=== PATIENT | male | born 1995 | race Caucasian/White ===

== ENCOUNTER 2022-08-27 10:30 | Emergency (ER) | payer OTHER, SELFPAY ==
[2022-08-27] VITALS (24 sets, daily range): BP systolic 95–139; BP diastolic 65–84; PULSE 68–115; RESP 10–17; TEMP 36.3; O2SAT 95–100
[2022-08-27 10:56] LABS: Basophils Percent Auto 0.4 % (0.2-1.2); Eosinophils Percent Auto 0.4 % (0-4.4); Hematocrit 48.5 % (42.0-52.0); Hemoglobin 16.8 g/dL (14.0-18.0); Immature Granulocyte Absolute 0.02 K/mm3 (0.00-0.031); Immature Granulocyte Percent A 0.2 % (0-0.5); Lymphocytes Absolute Auto 1.29 K/mm3 (0.9-3.2); Lymphocytes Percent Auto 15.7 % (18.3-44.2); Mean Corpuscular HGB Conc 34.6 g/dl (32-36); Mean Corpuscular Hemoglobin 30.9 pg (26-34); Mean Corpuscular Volume 89.3 fl (80-100); Mean Platelet Volume 8.9 fl (7.4-10.4); Monocytes Absolute Auto 0.5 K/mm3 (0.1-0.6); Monocytes Percent Auto 6.5 % (2.6-8.5); Neutrophils Absolute Auto 6.3 K/mm3 (1.3-6.7); Neutrophils Percent Auto 76.8 % (45.5-73.1); Platelet Count Result 292 k/mm3 (150-375); Red Blood Count 5.43 M/mm3 (4.6-6.20); Red Cell Distribution Width 11.5 % (11.5-14.5); White Blood Count 8.2 K/mm3 (4.5-10.0)
[2022-08-27 10:58] LABS: Appearance Urine Clear (Clear); Bilirubin Urine Negative (Negative); Blood Urine Negative (Negative); Color Urine Yellow (Yellow); Glucose Urine UA Negative (Negative); Ketones Urine 1+ mg/dL (Negative); Leukocyte Esterase Ur Negative LEU/UL (Negative); Nitrate Urine Negative (Negative); Protein Urine Negative (Negative); Specific Grav Ur 1.029 (1.001-1.035); Urobilinogen Urine 0.2 mg/dL (<2.0); pH Urine 5.5 (5.0-9.0)
[2022-08-27 11:11] LABS: Add Urine Microscopic? NO
[2022-08-27 11:14] LABS: Alanine Aminotransferase 17 U/L (6-50); Albumin Level 4.8 g/dL (3.5-5.1); Alkaline Phosphatase 119 U/L (38-126); Anion Gap 9 mmol/L (8-16); Aspartate Amino Transferase 26 U/L (17-59); Bilirubin,Total 0.9 mg/dL (0.2-1.3); Blood Urea Nitrogen 12 mg/dL (9-20); Calcium 9.3 mg/dL (8.4-10.2); Carbon Dioxide 31 mmol/L (22-30); Chloride 100 mmol/L (98-107); Estimated CRCL calculation 80 ml/min; Estimated Glomerular Filt Rate > 60; Glucose 117 mg/dL (65-110); Lipase 62 U/L (23-300); Sodium 140 mmol/L (137-145)
[2022-08-27] MEDS: SODIUM CHLORIDE 0.9% IV 1,000 ML 999 ML IV CONT (11:34)
[2022-08-27 11:53] LABS: Basophils Percent Auto 0.4 % (0.2-1.2); Eosinophils Percent Auto 0.1 % (0-4.4); Hematocrit 44.7 % (42.0-52.0); Hemoglobin 15.7 g/dL (14.0-18.0); Immature Granulocyte Absolute 0.02 K/mm3 (0.00-0.031); Immature Granulocyte Percent A 0.3 % (0-0.5); Lymphocytes Percent Auto 13.2 % (18.3-44.2); Mean Corpuscular HGB Conc 35.1 g/dl (32-36); Mean Corpuscular Volume 88.3 fl (80-100); Monocytes Absolute Auto 0.4 K/mm3 (0.1-0.6); Monocytes Percent Auto 5.7 % (2.6-8.5); Neutrophils Absolute Auto 6.1 K/mm3 (1.3-6.7); Neutrophils Percent Auto 80.3 % (45.5-73.1); Platelet Count Result 271 k/mm3 (150-375); Red Blood Count 5.06 M/mm3 (4.6-6.20); Red Cell Distribution Width 11.4 % (11.5-14.5); White Blood Count 7.6 K/mm3 (4.5-10.0)
[2022-08-27 11:59] LABS: Magnesium 1.9 mg/dL (1.6-2.3)
--- NOTE | 2022-08-27 12:17 | ED.GENADULT ---
HPI - General Adult General Chief complaint: Nausea/Vomiting/Diarrhea Stated complaint: nausea, headache, fatigue Time Seen by Provider: 08/27/22 10:49 History of Present Illness HPI narrative: this 27-year-old male patient with no significant past medical history related to today's complaint presents to the emergency room with complaints of having not feeling right. He endorses that he has been working outside in the heat this week in as the week has gone on over the course of the past 3 days he has had increased fatigue, weakness and generally feeling weak. He denies any fevers and believes that he has been drinking plenty of fluids. Patient has no complaints of chest pain, dyspnea, urinary complaints of burning, urgency, frequency or hematuria and he has not had any headache, lightheadedness or dizziness. He has had intermittent nausea with 1 episode of vomiting and he has had some diarrhea. He was evaluated today at a walk-in clinic and was referred here as they felt him to be dehydrated. Related Data Allergies Allergy/AdvReac Type Severity Reaction Status Date / Time iodine Allergy Unknown Unknown Verified 08/27/22 10:48 Cat Dander Allergy Mild Other Uncoded 08/22/18 10:09 SHELLFISH Allergy Unknown Unknown Uncoded 08/27/22 10:48 Review of Systems Review of Systems: A full 12 point review of systems was performed and is otherwise negative except as noted in HPI. All systems reviewed & are unremarkable except as noted in HPI and below Exam Const: General: healthy appearing, no acute distress and alert Nutritional Appearance: well nourished Orientation/consciousness: patient oriented x3 Limitations: no limitations HENMT: Head: normal to inspection Ears: external ears normal Face/Nose/Sinus: Normal external nose present Face and sinus: normal facial exam Mouth: Yes dry mucous membranes ( [place]asty) Throat: posterior oropharynx normal Eyes: Conjunctivae: conjunctivae normal Neck: Neck: normal visual inspection and no lymphadenopathy Chest: Chest palpation & inspection: normal inspection of the chest Resp: Effort & Inspection: normal respiratory effort Auscultation: clear to auscultation bilaterally Cardio: Rate: regular rate Rhythm: regular rhythm Heart sounds: no murmurs GI: Inspection: non-distended GI Palp: Yes Soft to palpation, No Tenderness to palpation present (GI) and No Guarding due to palpation present (GI) Auscultation: normal bowel sounds Back/Spine/Pelvis: Back: no CVA tenderness Skin: General skin exam: normal color Rashes: no rashes Wounds: no wounds Neuro: General: patient oriented x3, moves all extremities, no meningeal signs, no focal motor deficits and CN's II-XI intact bilaterally Cranial nerves: Yes Nystagmus not present Speech: normal speech Gait exam (Neuro): Normal gait present Extrem: General: normal to inspection, no clubbing, cyanosis or edema and no pedal edema Other: patient is able to freely and equally move all extremities well without deficit. Psych: Mental Status: mental status grossly normal Affect: normal affect Course Course Emergency Course: Differential diagnosis: dehydration, rhabdomyolysis, generalized weakness VSS labs: notable for ketonuria. Patient received 1 L IV fluid bolus and does note that he feels better. He will be discharged home after instructed to increase fluids while working in the heat. Vital Signs Vital signs: Vital Signs Temperature 97.3 F L 08/27/22 10:33 Pulse Rate 94 08/27/22 10:33 Respiratory Rate 16 08/27/22 10:33 Blood Pressure 95/65 L 08/27/22 10:33 Pulse Oximetry 100 08/27/22 10:33 Oxygen Delivery Room Air 08/27/22 10:33 Temperature 97.3 F L 08/27/22 10:33 Pulse Rate 101 H 08/27/22 10:54 Respiratory Rate 16 08/27/22 10:33 Blood Pressure 129/84 08/27/22 10:54 Pulse Oximetry 100 08/27/22 10:33 Oxygen Delivery Room Air 08/27/22 10:33 Medical Decision Making NICOLÁS Bustillos
== END 2022-08-27 13:20 | disposition home or self-care (01) ==
PROVIDERS: Emergency Medicine; Emergency Provider Nurse Practitioner Adult Health
DX: E86.0 Dehydration (principal)
CPT/HCPCS: 36415; 80053; 81003; 83690; 83735; 85025; 96360; 99283; J7030

== ENCOUNTER 2022-08-31 09:52 | Emergency (ER) | payer OTHER, SELFPAY ==
[2022-08-31] VITALS (15 sets, daily range): BP systolic 111–131; BP diastolic 69–97; PULSE 87; RESP 18–20; TEMP 36.7; O2SAT 98–100
[2022-08-31 11:15] LABS: Basophils Percent Auto 0.4 % (0.2-1.2); Eosinophils Percent Auto 0.5 % (0-4.4); Hematocrit 45.7 % (42.0-52.0); Hemoglobin 15.6 g/dL (14.0-18.0); Immature Granulocyte Absolute 0.01 K/mm3 (0.00-0.031); Immature Granulocyte Percent A 0.2 % (0-0.5); Lymphocytes Absolute Auto 1.29 K/mm3 (0.9-3.2); Lymphocytes Percent Auto 22.9 % (18.3-44.2); Mean Corpuscular HGB Conc 34.1 g/dl (32-36); Mean Corpuscular Hemoglobin 30.8 pg (26-34); Mean Corpuscular Volume 90.1 fl (80-100); Mean Platelet Volume 9.1 fl (7.4-10.4); Monocytes Absolute Auto 0.5 K/mm3 (0.1-0.6); Monocytes Percent Auto 9.4 % (2.6-8.5); Neutrophils Absolute Auto 3.8 K/mm3 (1.3-6.7); Neutrophils Percent Auto 66.6 % (45.5-73.1); Platelet Count Result 272 k/mm3 (150-375); Red Blood Count 5.07 M/mm3 (4.6-6.20); Red Cell Distribution Width 11.3 % (11.5-14.5); White Blood Count 5.6 K/mm3 (4.5-10.0)
[2022-08-31 11:16] LABS: Appearance Urine Clear (Clear); Bilirubin Urine Negative (Negative); Blood Urine Negative (Negative); Color Urine Yellow (Yellow); Glucose Urine UA Negative (Negative); Ketones Urine Negative (Negative); Leukocyte Esterase Ur Negative LEU/UL (Negative); Nitrate Urine Negative (Negative); Protein Urine Negative (Negative); Specific Grav Ur 1.022 (1.001-1.035); Urobilinogen Urine 0.2 mg/dL (<2.0)
[2022-08-31 11:26] LABS: Add Urine Microscopic? NO
[2022-08-31 11:28] LABS: Alanine Aminotransferase 15 U/L (6-50); Albumin Level 4.5 g/dL (3.5-5.1); Alkaline Phosphatase 101 U/L (38-126); Anion Gap 7 mmol/L (8-16); Aspartate Amino Transferase 23 U/L (17-59); Bilirubin,Total 0.5 mg/dL (0.2-1.3); Blood Urea Nitrogen 11 mg/dL (9-20); Calcium 8.9 mg/dL (8.4-10.2); Carbon Dioxide 30 mmol/L (22-30); Chloride 101 mmol/L (98-107); Estimated CRCL calculation 88 ml/min; Estimated Glomerular Filt Rate > 60; Glucose 99 mg/dL (65-110); Lipase 56 U/L (23-300); Potassium 3.9 mmol/L (3.4-5.0); Sodium 138 mmol/L (137-145)
--- NOTE | 2022-08-31 11:49 | ED.NAVMDI ---
HPI - Nausea/Vomiting/Diarrhea General Chief complaint: Nausea/Vomiting/Diarrhea <VANESSA Maciel Last Filed: 08/31/22 18:29> Stated complaint: nausea, dry mouth, weak - seen tuesday for same <VANESSA Maciel Last Filed: 08/31/22 18:29> Time Seen by Provider: 08/31/22 10:31 <VANESSA Maciel Last Filed: 08/31/22 18:29> Source: patient and old records reviewed <VANESSA Maciel Last Filed: 08/31/22 18:29> Mode of arrival: ambulatory <VANESSA Maciel Last Filed: 08/31/22 18:29> Limitations: no limitations <VANESSA Maciel Last Filed: 08/31/22 18:29> History of Present Illness HPI Narrative: Patient is a 27 y/o male who presents to the ED with multiple complaints. Patient reports he was seen in the ED here on Tuesday and told he was dehydrated. He received IV fluids and felt better initially however he reports he still just does not feel right. He complains of fatigue, headache, nausea, dry mouth. He has been drinking plenty of fluids at home. He has not tried anything for pain. He denies any vision changes, dizziness, lightheadedness, vomiting, abdominal pain, chest pain, difficulty breathing, fevers, polyuria. Patient admits his anxiety may be contributing to the symptoms. He does not currently have a PCP. He does not currently take anything for anxiety. <VANESSA Maciel Last Filed: 08/31/22 18:29> Related Data Allergies/Adverse reactions: Allergies Allergy/AdvReac Type Severity Reaction Status Date / Time iodine Allergy Unknown Unknown Verified 08/31/22 11:08 Cat Dander Allergy Mild Other Uncoded 08/31/22 09:59 SHELLFISH Allergy Unknown Unknown Uncoded 08/31/22 09:59 <VANESSA Maciel Last Filed: 08/31/22 18:29> Review of Systems Review of Systems: CONSTITUTIONAL: Reports fatigue. Denies fever, chills, or sweats. EYES: Denies visual change. CARDIOVASCULAR: Denies chest pain. RESPIRATORY: Denies dyspnea. GASTROINTESTINAL: See HPI. GENITOURINARY: Denies dysuria or hematuria. NEUROLOGIC: See HPI. PSYCHIATRIC: See HPI. <Cleo Jacobs PA-C - Last Filed: 08/31/22 18:29> All systems reviewed & are unremarkable except as noted in HPI and below <Cleo Jacobs PA-C - Last Filed: 08/31/22 18:29> Exam Narrative: GENERAL: Well appearing, well-nourished, non-toxic, in no acute distress. HEAD: Normocephalic, atraumatic. EENT: Eyes PERRLA/EOMI, conjunctiva clear. MMs moist. NECK: Supple. No adenopathy, no masses. RESPIRATORY: Airway patent, respirations nonlabored. Clear to auscultation bilaterally, no rales, rhonchi, wheezing. CARDIOVASCULAR: Regular rate and rhythm without murmurs, rubs, or gallops. Radial pulses 2+ and equal bilaterally. ABDOMINAL: Soft, nontender, nondistended, no hepatosplenomegaly. Normoactive BS. MUSCULOSKELETAL: Moves all extremities. Strength/ROM intact without gross deformities. SKIN: Warm, dry, normal color. No rashes. NEURO: A&O X3. Speech clear. Cranial nerves II-XII grossly intact. Steady gait. No ataxic movements. PSYCHIATRIC: Mildly anxious, fidgety. Normal interaction. <Cleo Jacobs PA-C - Last Filed: 08/31/22 18:29> Course MACHINE [employer]UCER/PA Physician Supervision I agree with midlevel documentation; I performed the medical decision making component of this evaluation. <Katerine German MD - Last Filed: 09/03/22 13:36> Vital Signs Vital signs: Vital Signs Temperature 98.0 F 08/31/22 09:56 Pulse Rate 87 08/31/22 09:56 Respiratory Rate 18 08/31/22 09:56 Blood Pressure 130/85 08/31/22 09:56 Pulse Oximetry 100 08/31/22 09:56 Oxygen Delivery Room Air 08/31/22 09:56 Temperature 98.0 F 08/31/22 09:56 Pulse Rate 87 08/31/22 09:56 Respiratory Rate 20 08/31/22 13:26 Blood Pressure 119/89 08/31/22 13:26 Pulse Oximetry 100 08/31/22 13:26 Oxygen Delivery Room Air 08/31/22 09:56 <
[2022-08-31] MEDS: ACETAMINOPHEN 500 MG TABLET 1000 MG PO (12:04)
[2022-08-31] MEDS: ONDANSETRON HCL ODT 4 MG TABLET PO (12:05)
[2022-08-31] MEDS: SODIUM CHLORIDE 0.9% IV 1,000 ML 999 ML IV CONT (12:05)
== END 2022-08-31 13:30 | disposition home or self-care (01) ==
PROVIDERS: Emergency Provider Physician Assistant; PCP Family Medicine
DX: R51.9 Headache, unspecified (principal); R11.0 Nausea; F41.9 Anxiety disorder, unspecified
CPT/HCPCS: 36415; 80053; 81003; 83690; 85025; 96360; 96361; 99283; A9270; J7030

== ENCOUNTER 2023-10-15 11:05 | Outpatient (CLI) | payer BC, SELFPAY ==
--- NOTE | ~2023-10-15 | XR_ITS ---
EXAMINATION: XR chest 2V 10/15/2023 11:26 INDICATION: Reflux. Chest pain. PROCEDURE: 2 view chest COMPARISON: No prior studies for comparison. FINDINGS: The lungs are clear. The cardiomediastinal silhouette is within normal limits. There are no pleural effusions. There is no pneumothorax suspected. There is dextroscoliosis of the thoracic spine. IMPRESSION: 1: NO ACUTE CARDIOPULMONARY DISEASE. Reviewed, dictated and finalized at location B.
[2023-10-15 12:24] LABS: Basophils Percent Auto 0.6 % (0.2-1.2); Eosinophils Absolute Auto 0.2 K/mm3 (0-0.3); Eosinophils Percent Auto 3.4 % (0-4.4); Hematocrit 44.9 % (42.0-52.0); Hemoglobin 15.6 g/dL (14.0-18.0); Immature Granulocyte Absolute 0.01 K/mm3 (0.00-0.031); Immature Granulocyte Percent A 0.2 % (0-0.5); Lymphocytes Absolute Auto 1.76 K/mm3 (0.9-3.2); Lymphocytes Percent Auto 34.8 % (18.3-44.2); Mean Corpuscular HGB Conc 34.7 g/dl (32-36); Mean Corpuscular Hemoglobin 31.8 pg (26-34); Mean Corpuscular Volume 91.6 fl (80-100); Mean Platelet Volume 9.5 fl (7.4-10.4); Monocytes Absolute Auto 0.5 K/mm3 (0.1-0.6); Monocytes Percent Auto 10.7 % (2.6-8.5); Neutrophils Absolute Auto 2.6 K/mm3 (1.3-6.7); Neutrophils Percent Auto 50.3 % (45.5-73.1); Platelet Count Result 253 k/mm3 (150-375); Red Cell Distribution Width 11.5 % (11.5-14.5); White Blood Count 5.1 K/mm3 (4.5-10.0)
[2023-10-15 12:45] LABS: Alanine Aminotransferase 15 U/L (6-50); Albumin Level 4.7 g/dL (3.5-5.1); Alkaline Phosphatase 81 U/L (38-126); Anion Gap 9 mmol/L (4-12); Aspartate Amino Transferase 25 U/L (17-59); Bilirubin,Total 0.9 mg/dL (0.2-1.3); Blood Urea Nitrogen 14 mg/dL (9-20); Calcium 9.1 mg/dL (8.4-10.2); Carbon Dioxide 31 mmol/L (22-30); Chloride 100 mmol/L (98-107); Estimated Glomerular Filt Rate > 60; Glucose 94 mg/dL (65-110); Potassium 4.4 mmol/L (3.4-5.0); Sodium 140 mmol/L (137-145)
[2023-10-18 16:02] LABS: H pylori, Urea Breath NOT DETECTED (NOT DETECTED)
== END 2023-10-15 11:06 | disposition home or self-care (01) ==
PROVIDERS: PCP Family Medicine; Visit Provider Internal Medicine
DX: R05.9 Cough, unspecified (principal)
CPT/HCPCS: 36415; 71046; 80053; 83013; 85025

== ENCOUNTER 2025-02-21 00:59 | Day surgery (SDC) | payer BC, SELFPAY ==
[2025-02-06 08:53] VITALS: BMI 23.8
--- OUTSIDE RECORDS SUMMARY | 2025-02-21 01:02 | XMS_ITS | Clinical Summary ---
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 Role Phone No, Physician Primary Care Provider [phone] Allergies Active Allergy Reactions Criticality Noted Date Comments Iodine Other (See comments) Low 12/12/2020 unknown Shellfish Swelling Medium 10/15/2009 Medications No known medications Active Problems No known active problems Surgical History Surgery Date Site/Laterality Comments EYE SURGERY Family History Medical History Relation Name Comments Hyperlipidemia Father Hyperlipidemia Mother Relation Name Status Comments Father Alive Mother Alive Social History Tobacco Use Types Packs/Day Years Used Date Smoking Tobacco: Never Personal Safety Answer Date Recorded Getting School Help Needed Not on file 05/15 Sex and Gender Information Value Date Recorded Sex Assigned at Not on file Legal Sex Male 4:23 AM [employer] Gender Identity Not on file Sexual Orientation Not on file Last Filed Vital Signs Vital Sign Reading Time Taken Comments Blood Pressure 130/84 08/27/2022 9:58 AM CDT Pulse 85 08/27/2022 9:58 AM CDT Temperature 37 C (98.6 F) 08/27/2022 9:58 AM CDT Respiratory Rate 16 08/27/2022 9:58 AM CDT Oxygen Saturation 99% 08/27/2022 9:58 AM CDT Inhaled Oxygen Concentration - - Weight 70.3 kg (155 lb) 08/27/2022 9:58 AM CDT Height 170.2 cm (5' 7) 08/27/2022 9:58 AM CDT Body Mass Index 24.28 08/27/2022 9:58 AM CDT Plan of Treatment Health Maintenance Due Date Last Done Comments Depression Screening 1993 Hepatitis C Screening 1993 DTaP/Tdap/Td Vaccine (1 - Tdap) 2004 Varicella Vaccines (1 of 2 - 13+ 2-dose series) 2006 Hepatitis B Screening 2011 Regular Well Visit/Exam 18-64 2011 HPV Vaccines (1 - 3-dose SCD M series) 2020 Influenza Vaccine (#1) 2024 Pneumococcal vaccine <65 Aged Out No longer eligible based on patient's age to complete this topic Insurance [facility] Care Teams [employer] Mechanic Relationship Specialty Start Date End Date No, Physician PCP - General 11/18/20
[2025-02-21 08:41] VITALS: BP 141/87; PULSE 86; RESP 16; TEMP 36.4; O2SAT 98
[2025-02-21] MEDS: LACTATED RINGERS 1,000 ML 150 ML IV CONT (08:48)
--- NOTE | 2025-02-21 09:01 | PM.HPGS ---
History of Present Illness History of Present Illness Consent: Risks, benefits, and alternatives have been discussed and questions answered. Patient agrees to proceed with procedure. Chief complaint: Gastro-esophageal reflux disease without esophagit Narrative: Lloyd Villalta is a 29 year old male here for first egd on pepcid, h/o gerd Review of Systems Review of Systems: All systems reviewed & are unremarkable except as noted in HPI and below PMFSH Past Medical History Medical History (Updated 02/21/25 @ 09:02 by Noe Arora MD) GERD (gastroesophageal reflux disease) Social History Social History Smoking status: Never smoker Alcohol intake: never Substance use: never Substance use type: does not use Living arrangements: with family Spiritual care concerns: No Meds Home Medications and Allergies Home Medications ?Medication ?Instructions ?Recorded ?Confirmed ?Type omeprazole 20 mg capsule,delayed 20 mg PO DAILY 12/15/23 02/06/25 History release famotidine 20 mg tablet (Pepcid) 20 mg PO DAILY 02/06/25 02/21/25 History famotidine 40 mg tablet (Pepcid) 40 mg PO DAILY 02/06/25 02/06/25 History Allergies Allergy/AdvReac Type Severity Reaction Status Date / Time iodine Allergy Unknown Unknown Verified 02/21/25 08:41 Cat Dander Allergy Mild Other Uncoded 12/15/23 08:46 SHELLFISH Allergy Mild HIVES Uncoded 02/06/25 08:56 Vital Signs Vital Signs - 24 hr 02/21/25 08:41 Temperature 97.5 F L Pulse Rate 86 Respiratory Rate 16 Blood Pressure 141/87 H Pulse Oximetry 98 Oxygen Delivery Room Air Exam Const: General: comfortable and no acute distress HENMT: Face/Nose/Sinus: Normal nares present Eyes: General: appearance normal, both eyes and all related structures Neck: Neck: no JVD Resp: Auscultation: clear to auscultation bilaterally Cardio: Rate: regular rate Rhythm: regular rhythm GI: Inspection: non-distended GI Palp: Yes Soft to palpation Skin: General skin exam: normal color Extrem: General: normal to inspection Psych: Mental Status: mental status grossly normal Assessment and Plan Assessment and plan (1) GERD (gastroesophageal reflux disease): Code(s): K21.9 - Gastro-esophageal reflux disease without esophagitis Status: Acute Assessment and Plan: egd with bx
--- NOTE | 2025-02-21 09:01 | WPDANESEPPF ---
Anes - Initial Pre Proc Eval Procedure: Operation Date: 02/21/25 10:00 Proposed Procedures p Esophagogastroduodenoscopy - Noe Arora MD Date/Time: 02/21/25 09:01 Surgeon: Noe Arora MD Pre Op Diagnosis: Gastro-esophageal reflux disease without esophagit Patient Data Age: 29 Gender: M Height: 1.7 m Weight: 67.5 kg Last Vital Signs Temp 36.4 C L 02/21/25 08:41 Pulse 86 02/21/25 08:41 Resp 16 02/21/25 08:41 BP 141/87 H 02/21/25 08:41 Pulse Ox 98 02/21/25 08:41 O2 Del Method Room Air 02/21/25 08:41 Allergies Allergy/AdvReac Type Severity Reaction Status Date / Time iodine Allergy Unknown Unknown Verified 02/21/25 08:41 Cat Dander Allergy Mild Other Uncoded 12/15/23 08:46 SHELLFISH Allergy Mild HIVES Uncoded 02/06/25 08:56 Home Medications ?Medication ?Instructions ?Recorded ?Confirmed ?Type omeprazole 20 mg capsule,delayed 20 mg PO DAILY 12/15/23 02/06/25 History release famotidine 20 mg tablet (Pepcid) 20 mg PO DAILY 02/06/25 02/21/25 History famotidine 40 mg tablet (Pepcid) 40 mg PO DAILY 02/06/25 02/06/25 History Patient hx anesthesia problems: none Family hx anesthesia problems: none Results Review: All pre-operative results and documents have been reviewed as part of the pre-operative evaluation. [facility] Past Medical History Medical History (Updated 02/21/25 @ 09:02 by Noe Arora MD) GERD (gastroesophageal reflux disease) Social History Social History Smoking status: Never smoker Alcohol intake: never Substance use: never Substance use type: does not use Living arrangements: with family Spiritual care concerns: No Anes - Eval Final PreProcedure Day of Procedure 02/21/25 09:01 Patient weight: normal Heart: regular rate and rhythm Lungs: clear to auscultation Airway: Mallampati scale class II Neurological: alert and oriented Last oral intake: >/= 8 hours ASA classification: II Emergent: no Anesthetic plan: proceed Anesthesia type and monitoring: general GIVS and standard monitoring Results Review: All pre-operative results and documents have been reviewed as part of the pre-operative evaluation. Informed Consent: The patient's anesthetic plan and its attendant risks and benefits were discussed with the patient/family/POA. Questions were solicited and answers provided to the satisfaction of the patient/family/POA.
--- NOTE | 2025-02-21 09:09 | S_PTH ---
PATIENT: Lloyd Villalta LOC: [facility] Hi#:[id number] AGE/SX: 29/M ROOM: RE02/21/[address]: Noe Arora MD : 1995 BED: DIS: 02/21/2025 SPEC #: [id number] RECD: 02/21/25 09:39 STATUS: AKBAR RECaryn #: [id number] JOCELYNN: 02/21/25 09:[address]: Noe Arora DEPT: [facility] Surgical RECD BY: Shereen Corral ENTERED: 02/21/25 09:39 SP TYPE: Surgical OTHR DR: Joo AshtonMD Tissues: A - Esophageal Biopsy B - Gastric Biopsy Procedures: Hematoxylin and Eosin Stain Gross and Microscopic Level 4
[2025-02-21 09:10] VITALS: BP 106/68; PULSE 76; RESP 21; O2SAT 98
[2025-02-21 09:20] VITALS: BP 108/68; PULSE 74; RESP 20; O2SAT 99
[2025-02-21 09:30] VITALS: BP 101/68; PULSE 77; RESP 21; O2SAT 97
== END 2025-02-21 09:38 | disposition home or self-care (01) ==
PROVIDERS: PCP Internal Medicine; Referring Provider Internal Medicine; Visit Provider Internal Medicine Gastroenterology
PROC: 0DJ08ZZ Inspection of Upper Intestinal Tract, Via Natural or Artificial Opening Endoscopic (ICD-10-PCS; CPT 43239; principal; 2025-02-21 10:00)
DX: K21.9 Gastro-esophageal reflux disease without esophagitis (principal)
CPT/HCPCS: 43239; 88305; J2704; J7120

== ENCOUNTER 2025-02-26 09:45 | Emergency (ER) | payer BC, SELFPAY ==
--- NOTE | 2025-02-26 09:47 | ED.GENADULT ---
HPI - General Adult General Chief complaint: Urogenital-Male Stated complaint: COLD SYMPTOMS/UTI SYMPTOMS Time Seen by Provider: 02/26/25 10:22 Source: patient, RN notes reviewed and old records reviewed Mode of arrival: ambulatory Limitations: no limitations History of Present Illness HPI narrative: 29-year-old male presents to the [facility] with complaints of burning, urgency and frequency with urination for 3 weeks. States that started get better and it returned 3 days ago. Patient states it started after having intercourse approximately 3 weeks ago. Denies any concerns for STIs. No treatment prior to arrival. Patient denies any testicular pain. Denies any rashes. No redness or inflammation. Patient also has concerns of 2 day history of nasal congestion and a sore throat. Related Data Home Medications ?Medication ?Instructions ?Recorded ?Confirmed ?Last Taken ?Type omeprazole 20 mg capsule,delayed 20 mg PO DAILY 12/15/23 02/26/25 Unknown History release famotidine 20 mg tablet (Pepcid) 20 mg PO DAILY 02/06/25 02/26/25 02/20/25 History famotidine 40 mg tablet (Pepcid) 40 mg PO DAILY 02/06/25 02/06/25 Unknown History Allergies Allergy/AdvReac Type Severity Reaction Status Date / Time iodine Allergy Unknown Unknown Verified 02/26/25 10:01 Cat Dander Allergy Mild Other Uncoded 12/15/23 08:46 SHELLFISH Allergy Mild HIVES Uncoded 02/06/25 08:56 Review of Systems Review of Systems: All systems reviewed & are unremarkable except as noted in HPI and below Constitutional: Constitutional: Reports no additional constitutional complaints ENT: Reports as per HPI Cardiovascular: Cardiovascular: Reports no additional cardiovascular complaints, Denies chest pain and Denies dyspnea Respiratory: Respiratory: Reports no additional respiratory complaints, Denies chest congestion, Denies cough and Denies dyspnea Genitourinary: Genitourinary: Reports as per HPI Musculoskeletal: Musculoskeletal: Reports no additional musculoskeletal complaints Integumentary/Breasts: Skin/Breast: Reports system reviewed and no additional complaints, except as docu PMFSH Past Medical History Medical History GERD (gastroesophageal reflux disease) Social History Social History Smoking status: Never smoker Alcohol intake: never Substance use: never Substance use type: does not use Living arrangements: with family Spiritual care concerns: No Comments At the time of my signature, I reviewed and agree with the nursing past medical, surgical, social, and family history. There is no relevant family history pertinent to the patient complaint. Exam Const: General: cooperative, healthy appearing, comfortable, no acute distress, well developed, alert and well nourished Nutritional Appearance: well nourished Orientation/consciousness: patient oriented x3 Limitations: no limitations HENMT: Head: normal to inspection Ears: hearing grossly normal bilaterally, external ears normal, TM's normal bilaterally, EAC's normal, mastoids normal and no periauricular adenopathy Mouth: Yes Normal oral and palatal mucosa present, Yes lip normal, Yes tongue normal and Yes moist mucous membranes Throat: posterior oropharynx normal, uvula midline and no uvular edema Eyes: General: appearance normal, both eyes and all related structures Alignment and Position: alignment normal Neck: Neck: normal visual inspection, full ROM, no lymphadenopathy and no meningeal signs Chest: Chest palpation & inspection: normal inspection of the chest Resp: Effort & Inspection: normal respiratory effort and able to speak in complete sentences Auscultation: clear to auscultation bilaterally, no crackles, no rales, no rhonchi and no wheezes Cardio: Rate: regular rate GI: GI Palp: No abdominal tenderness : General: Yes no CVA tenderness Skin: General skin exam: normal color and no rashes or lesions noted Neuro: General: patient oriented x3, gait normal, moves all extremities and no meningeal signs Cognition (Neuro): normal cognition Speech: normal speech Gait exam (Neuro): Normal gait present Extrem: General: normal to inspection, full ROM, capillary refill normal and normal gait Psych: Appearance: grossly normal and well kempt Mental Status: mental status grossly normal Speech and movement: Normal speech and movement present and Clear speech present Affect: normal affect Attitude: cooperative Course Course Level of Care: Express Care Visit Vital Signs Vital signs: Vital Signs Temperature 97.5 F L 02/26/25 09:54 Pulse Rate 85 02/26/25 09:54 Respiratory Rate 16 02/26/25 09:54 Blood Pressure 125/79 02/26/25 09:54 Pulse Oximetry 99 02/26/25 09:54 Temperature 97.5 F L 02/26/25 09:54 Pulse Rate 85 02/26/25 09:54 Respiratory Rate 16 02/26/25 09:54 Blood Pressure 125/79 02/26/25 09:54 Pulse Oximetry 99 02/26/25 09:54 reviewed MDM MDM Narrative Medical decision making narrative: Patient sitting in exam room. Patient is nontoxic, vitals stable. Patient presents with URI symptoms as well as concerns for a UTI. Urine dip does not show signs of infection however concerns for hematuria, will follow-up with urology per patient. Patient strep, negative. Will culture. Discharge instructions reviewed with patient, as well as provided in writing per nursing staff. The instructions also include specific and strict return/GO TO THE ER as well as f/u information. All questions have been answered, and the patient deny any further questions with discharge and discharge plan. Some parts of this dictation were generated by voice recognition software and may contain typographical and/or grammatical inaccuracies. Differential Diagnosis Differential Diagnosis: Differential diagnostic considerations for upper respiratory infection include upper respiratory infection, croup, otitis media, sinusitis, viral infection, bronchitis, influenza, pharyngitis, strep, uvulitis.? Lab Data Labs: Lab Results 02/26/25 02/26/25 Range/Units 10:02 10:53 POC Urine Color Yellow POC Urine Clarity Clear POC Urine pH 6.0 POC Ur Specif [place] 1.030 POC Urine Protein 3+ (Negative) POC Ur Glucose (UA) Negative (Negative) POC Urine Ketones Negative (Negative) POC Urine Blood 3+ (Negative) POC Urine Nitrite Negative (Negative) POC Urine Bilirubin 1+ (Negative) POC Urine Urobilinogen 0.2 POC U Leukocyte Esteras Negative (Negative) POC Grp A Strep Screen Negative (Negative) Reviewed Discharge Plan Discharge Clinical Impression: Dysuria, Upper respiratory infection, viral Hematuria Qualifiers: Hematuria type: unspecified type Qualified Code(s): R31.9 - Hematuria, unspecified Patient Disposition: Home Condition: Stable Instructions: Antibiotic Form, Upper Respiratory Infection (ED), Hematuria (ED), Dysuria (ED), Postnasal Drip (DC) Additional Instructions: Your rapid strep swab was negative today at [facility]. A throat culture will be sent to the laboratory for further testing. If the test is positive, you will receive a phone call within 48 hours and an appropriate antibiotic will be initiated at that time. Your symptoms are likely due to a viral illness, which is not treated with antibiotics. Typically viral infections last 7-10 days, can linger for couple of weeks. It is very important to treat your symptoms. Drink plenty of water, Gatorade, Pedialyte, ice pops or Jell-O. -Alternate Tylenol and Motrin per package directions for fever or pain. You can alternate every 4 hours -Antihistamine medication such as Zyrtec/Claritin during the day can help improve symptoms. -doing daily nasal irrigations can help relieve pressure your sinuses. Things like a Neti pot -Use Flonase twice a day for 5 days then daily to help reduce the inflammation and dry up your sinuses. -You can also use Mucinex. Be sure to drink plenty of water with this medication at least 8 ounces with every dose and it is important to drink 8 to 10 glasses of water per day. Water is a natural decongestant -Eat and drink things that are easy to swallow, like tea or soup, or popsicles. -Oral rinses such as: Salt water gargles and/or may use topical anesthetic (eg. Chloraseptic spray) or lozenges to relieve dryness or throat pain). -Frequent hand washing or hand produce service team member is one of the best ways to prevent spread of infection. -Using a vaporizer or humidifier at night will also help thin secretions and help with coughing up phlegm. -Follow up with primary care provider in 7-10 days if condition is not improving - For new or worsening symptoms go directly to the nearest ER Increased water intake Take Tylenol as needed for pain Your urine will be sent to our lab for a culture. If at that time a bacteria grows you will be notified and an antibiotic will be called in. Follow-up with primary care For new or worsening symptoms go directly to the emergency room Patient Language: Lao Prescriptions: No Action omeprazole 20 mg capsule,delayed release(DR/EC) 20 mg PO DAILY famotidine [Pepcid] 40 mg tablet 40 mg PO DAILY famotidine [Pepcid] 20 mg tablet 20 mg PO DAILY Follow-up/Referrals: Poli,MD Joo [Primary Care Provider] - 3 Days Clinical Impression: Hematuria; Dysuria Stand Alone Forms: Work/School Release IP Time of Disposition: 10:50
[2025-02-26 09:54] VITALS: BP 125/79; PULSE 85; RESP 16; TEMP 36.4; O2SAT 99
[2025-02-26 10:05] LABS: EDUAAPPEAR Clear; EDUABILI 1+ (Negative); EDUABLOOD 3+ (Negative); EDUACOLOR1 Yellow; EDUAGLUCOSE Negative (Negative); EDUAKETONE Negative (Negative); EDUALEUKO Negative (Negative); EDUANITRATE Negative (Negative); EDUAPH 6.0; EDUAPROTEIN 3+ (Negative); EDUASPGRAVITY 1.030; EDUAUROBILI 0.2
[2025-02-26 10:56] LABS: EDSTREPNEGPOS1 Negative (Negative)
== END 2025-02-26 10:59 | disposition home or self-care (01) ==
PROVIDERS: Emergency Provider Nurse Practitioner; PCP Internal Medicine
DX: R30.0 Dysuria (principal); J06.9 Acute upper respiratory infection, unspecified; R31.9 Hematuria, unspecified
CPT/HCPCS: 81003; 87081; 87086; 87880; 99213; G0463

== ENCOUNTER 2025-03-01 11:29 | Outpatient (CLI) | payer BC, SELFPAY ==
--- NOTE | ~2025-03-01 | CT_ITS ---
EXAM/PROCEDURE: CT abdomen pelvis wo con HISTORY: KIDNEY STONE COMPARISON: None available. TECHNIQUE: Noncontrast stone protocol CT performed FINDINGS: The bowel gas pattern is nonobstructive with no free air free fluid or pneumatosis. Moderate amount of stool present extending to the cecum. Normal size appendix. No hydroureteronephrosis. No kidney stones, urinary bladder stones, or obstructing ureteral stones seen. Stomach spleen liver and adrenal glands appear within normal limits. The pancreas also appears normal for technique. Gallbladder unremarkable. No bulky mesenteric or retroperitoneal lymphadenopathy or masses seen. The lung bases are clear. Heart size normal. IMPRESSION: Directed noncontrast exam demonstrating no focal acute process. No urolithiasis or obstructing ureteral stones. Other findings as above. Reviewed, dictated and finalized at location A. [facility]
== END 2025-03-01 11:30 | disposition home or self-care (01) ==
PROVIDERS: PCP Internal Medicine; Visit Provider Physician Assistant
DX: N20.0 Calculus of kidney (principal)
CPT/HCPCS: 74176